=== PATIENT | female | born 1975 | race Caucasian/White ===

== ENCOUNTER 2016-10-27 21:18 | Observation (INO) ==
[2016-10-27] MEDS ORDERED: Ondansetron 4 MG/2 ML VIAL IVP ONE (21:54)
[2016-10-27] MEDS ORDERED: *HR* HYDROmorphone (PF) 1 MG/ML SYRINGE IVP ONE (21:54)
[2016-10-27] MEDS ORDERED: 0.9 % Sodium Chloride 1,000 ML IVC ONE (21:54)
--- NOTE | 2016-10-27 21:55 | Emergency Department Note ---
Disposition Clinical Impression: Abdominal pain Qualifiers: Abdominal location: unspecified location Qualified Code(s): R10.9 - Unspecified abdominal pain Disposition: Still a Patient Condition: Good Forms: Work/School Release, ED Satisfaction Letter Abdominal Pain HPI - General Chief Complaint: ED Abdominal Pain Stated Complaint: possible uti, abdominal/back pain Time Seen by Provider: 10/27/16 21:47 Source: patient Mode of arrival: ambulatory Limitations: no limitations Nursing Notes Reviewed: Yes Vital Signs Reviewed: Yes - History of Present Illness HPI Narrative: 41-year-old female who comes in complaining of right flank and right upper quadrant pain. Patient states the pain has been going on for the last couple of days. Has had some mild burning on urination. Pt Subjective Complaint: abdominal pain, flank pain Onset (ago): day(s) Consistency: constant Location: RUQ, R flank Pain Severity: moderate Pain Scale: 8 Quality: stabbing, aching Migration to: no migration Improves with: nothing Worsens with: nothing Associated symptoms: Reports: nausea - Related Data Allergies Allergy/AdvReac Type Severity Reaction Status Date / Time No Known Allergies Allergy Verified 10/27/16 21:45 Constitutional: Denies: fever, chills, weakness, weight change Eyes: Denies: eye pain, eye discharge, vision change ENT ED: Denies: ear pain, throat pain, dental pain, hearing loss, epistaxis, congestion, dysphagia Cardiovascular: Denies: chest pain, palpitations, dyspnea on exertion, edema, syncope Respiratory: Denies: cough, dyspnea, wheezes, hemoptysis, stridor Gastrointestinal: Reports: abdominal pain, nausea. Denies: vomiting, diarrhea, constipation, hematemesis, melena, hematochezia Genitourinary: Denies: dysuria, frequency, hematuria, discharge Musculoskeletal: Denies: back pain, neck pain, arthralgia, myalgia Integumentary: Denies: rash, abrasion, lesions Neurological: Denies: headache, weakness, numbness, paresthesias, confusion, abnormal gait, vertigo Psychiatric: Denies: anxiety, depression, suicidal thoughts, homicidal thoughts , auditory hallucinations, visual hallucinations Endocrine: Denies: fatigue Hematological/Lymphatic: Denies: easy bleeding, easy bruising Allergic/Immunologic: Denies: facial swelling, urticaria Abdominal Pain PMH - Past Medical History Medical history: Reports: no medical history Female Surgical History: Reports: other Psychiatric history: Reports: no psych history - Social History Smoking status: Never smoker Alcohol use: Reports: none Drug use: Reports: none Physical Exam - General Limitations: no limitations General appearance: alert, in no apparent distress - Head Head exam: atraumatic, normocephalic, normal inspection - Eye Eye exam: Present: normal appearance, PERRL, EOMI - ENT ENT exam: normal exam, normal oropharynx, mucous membranes moist - Neck Neck exam: Present: normal inspection, full ROM, trachea midline - Chest Chest inspection: Present: normal inspection, symmetric chest wall rise - Respiratory Respiratory exam: Present: normal lung sounds bilaterally - Cardiovascular Cardiovascular exam: Present: regular rate, normal rhythm, normal heart sounds - Abdominal Exam Abdominal exam: Present: soft, tenderness. Absent: guarding, rebound Abdominal tenderness: Present: RUQ - Extremities Exam Extremities exam: Present: normal inspection, full ROM. Absent: tenderness, pedal edema - Expanded Lower Extremity Exam Neurovascular/Tendon exam: Absent: motor deficit, sensory deficit, tendon deficit Gait: observed and normal - Back Exam Back exam: Present: normal inspection, full ROM. Absent: tenderness - Neurological Exam Neurological exam: Present: alert, oriented X3 - Psychiatric Psychiatric exam: Present: normal affect, normal mood - Skin Skin exam: Present: warm, dry, intact, normal color Course Vital Signs Temperature 98.6 F 10/27/16 21:40 Pulse Rate 95 10/27/16 21:40 Respiratory Rate 20 10/27/16 21:40 Blood Pressure 161/99 10/27/16 21:40 O2 Sat by Pulse Oximetry 97 10/27/16 21:40 Temperature 98.6 F 10/27/16 21:40 Pulse Rate 95 10/27/16 21:40 Respiratory Rate 20 10/27/16 21:40 Blood Pressure 161/99 10/27/16 21:40 O2 Sat by Pulse Oximetry 97 10/27/16 21:40 Oxygen Delivery Oxygen Delivery Room Air Abdominal Pain - Lab Data Result diagrams: 10/27/16 22:05 10/27/16 22:05 Lab Results 10/27/16 10/27/16 10/27/16 Range/Units 21:50 21:50 22:05 WBC 8.8 (4.3-11.1) K/mcL RBC 5.25 H (3.82-4.97) M/mcL Hgb 13.6 (11.5-15.4) g/dL Hct 42.1 (35.3-44.9) % MCV 80.2 L (83.0-100.0) fL MCH 25.9 L (28.0-33.3) pg MCHC 32.3 (31.6-35.5) g/dL RDW 14.2 (11.5-14.5) % Plt Count 298 (140-400) K/mcL MPV 9.0 L (9.4-12.4) fL Immature Gran % 0.5 (0-4) % Seg Neutrophils % 68.6 % Lymphocytes % 17.7 % Monocytes % 10.3 % Eosinophils % 2.4 % Basophils % 0.5 % Neutrophils # 6.1 (1.6-8.9) K/mcL Lymphocytes # 1.6 (0.6-4.6) K/mcL Monocytes # 0.9 (0.0-1.3) K/mcL Eosinophils # 0.2 (0.0-0.6) K/mcL Basophils # 0.0 (0.0-0.2) K/mcL Immature Plt Fraction 2.7 (1.1-6.1) % Sodium (136-145) mEq/L Potassium (3.5-4.5) mEq/L Chloride (98-109) mEq/L Carbon Dioxide (19-29) mEq/L BUN (7-20) mg/dL Creatinine (0.57-1.11) mg/dL Est GFR ( Amer) (> 60) Est GFR (Non-Af Amer) (> 60) BUN/Creatinine Ratio (6-26) Glucose (70-99) mg/dL Calculated Osmolality (280-300) Calcium (8.6-10.8) mg/dL Total Bilirubin (0.2-1.2) mg/dL Direct Bilirubin (0.0-0.5) mg/dL Indirect Bilirubin (0.0-1.2) mg/dL AST (5-34) Units/L ALT (0-55) Units/L Alkaline Phosphatase (38-126) Units/L Serum Total Protein (6.0-8.3) g/dL Albumin (3.5-5.0) g/dL Globulin (2.4-3.5) g/dL Albumin/Globulin Ratio (1.1-2.2) Amylase (25-125) Units/L Lipase (8-78) Units/L Urine Color Yellow (Yellow) Urine Clarity Cloudy A (Clear) Urine pH 5.5 (5.0-8.0) pH Units Ur Specific [place] > 1.030 H (1.010-1.025) Urine Protein Trace (Neg-Trace) mg/dL Urine Glucose (UA) Normal (Normal) mg/dL Urine Ketones Negative (Negative) mg/dL Urine Blood Small H (Negative) Urine Nitrite Negative (Negative) Urine Bilirubin Negative (Negative) Urine Urobilinogen Normal (Normal) mg/dL Ur Leukocyte Esterase Trace H (Negative) Urine Microscopic RBC 30-50 H (0-3) per hpf Urine Microscopic WBC 5-15 H (0-3) per hpf Ur Squamous Epith Cells Many H (None-Few) per lpf Urine Bacteria Moderate H (None-Few) per hpf Hyaline Casts None Seen (None-Few) per lpf Ur Culture Indicated? YES A (NO) Urine Test Negative (Negative) 10/27/16 10/27/16 Range/Units 22:05 22:05 WBC (4.3-11.1) K/mcL RBC (3.82-4.97) M/mcL Hgb (11.5-15.4) g/dL Hct (35.3-44.9) % MCV (83.0-100.0) fL MCH (28.0-33.3) pg MCHC (31.6-35.5) g/dL RDW (11.5-14.5) % Plt Count (140-400) K/mcL MPV (9.4-12.4) fL Immature Gran % (0-4) % Seg Neutrophils % % Lymphocytes % % Monocytes % % Eosinophils % % Basophils % % Neutrophils # (1.6-8.9) K/mcL Lymphocytes # (0.6-4.6) K/mcL Monocytes # (0.0-1.3) K/mcL Eosinophils # (0.0-0.6) K/mcL Basophils # (0.0-0.2) K/mcL Immature Plt Fraction (1.1-6.1) % Sodium 139 (136-145) mEq/L Potassium 4.0 (3.5-4.5) mEq/L Chloride 104 (98-109) mEq/L Carbon Dioxide 22 (19-29) mEq/L BUN 13 (7-20) mg/dL Creatinine 0.83 (0.57-1.11) mg/dL Est GFR ( Amer) > 60 (> 60) Est GFR (Non-Af Amer) > 60 (> 60) BUN/Creatinine Ratio 16 (6-26) Glucose 111 H (70-99) mg/dL Calculated Osmolality 289 (280-300) Calcium 9.3 (8.6-10.8) mg/dL Total Bilirubin 0.4 (0.2-1.2) mg/dL Direct Bilirubin 0.2 (0.0-0.5) mg/dL Indirect Bilirubin 0.2 (0.0-1.2) mg/dL AST 21 (5-34) Units/L ALT 24 (0-55) Units/L Alkaline Phosphatase 86 (38-126) Units/L Serum Total Protein 8.1 (6.0-8.3) g/dL Albumin 3.8 (3.5-5.0) g/dL Globulin 4.3 H (2.4-3.5) g/dL Albumin/Globulin Ratio 0.9 L (1.1-2.2) Amylase 59 (25-125) Units/L Lipase 30 (8-78) Units/L Urine Color (Yellow) Urine Clarity (Clear) Urine pH (5.0-8.0) pH Units Ur Specific [place] (1.010-1.025) Urine Protein (Neg-Trace) mg/dL Urine Glucose (UA) (Normal) mg/dL Urine Ketones (Negative) mg/dL Urine Blood (Negative) Urine Nitrite (Negative) Urine Bilirubin (Negative) Urine Urobilinogen (Normal) mg/dL Ur Leukocyte Esterase (Negative) Urine Microscopic RBC (0-3) per hpf Urine Microscopic WBC (0-3) per hpf Ur Squamous Epith Cells (None-Few) per lpf Urine Bacteria (None-Few) per hpf Hyaline Casts (None-Few) per lpf Ur Culture Indicated? (NO) Urine Test (Negative) S.B.A.R. - S.B.A.R. Recommendation: Recommendation based on pending studies, treatments, or consults S.B.A.R. Report Given to: Dr. Jairo Caruso Repor Time: 23:00
[2016-10-27 22:00] LABS: Bilirubin,Urine Negative (Negative); Blood,Urine Small (Negative); Clarity,Urine Cloudy (Clear); Color,Urine Yellow (Yellow); Glucose,Urine (UA) Normal (Normal); Ketones,Urine Negative (Negative); Leukocyte Esterase,Urine Trace (Negative); Nitrite,Urine Negative (Negative); PH,Urine 5.5 pH Units (5.0-8.0); Protein,Urine Trace mg/dL (Neg-Trace); Specific Gravity,Urine > 1.030 (1.010-1.025); Urobilinogen,Urine Normal (Normal)
[2016-10-27 22:03] LABS: Bacteria,Urine Moderate per hpf (None-Few); Hyaline Casts,Urine None Seen per lpf (None-Few); RBC,Urine 30-50 per hpf (0-3); Squamous Epithelial Cell,Urine Many per lpf (None-Few)
[2016-10-27 22:14] LABS: Basophils % 0.5 %; Eosinophils # 0.2 K/mcL (0.0-0.6); Eosinophils % 2.4 %; Hematocrit 42.1 % (35.3-44.9); Hemoglobin 13.6 g/dL (11.5-15.4); Immature Granulocytes % 0.5 % (0-4); Immature Platelets 2.7 % (1.1-6.1); Lymphocytes # 1.6 K/mcL (0.6-4.6); Lymphocytes % 17.7 %; Mean Corpuscular HGB Conc 32.3 g/dL (31.6-35.5); Mean Corpuscular Hemoglobin 25.9 pg (28.0-33.3); Mean Corpuscular Volume 80.2 fL (83.0-100.0); Monocytes # 0.9 K/mcL (0.0-1.3); Monocytes % 10.3 %; Neutrophils # 6.1 K/mcL (1.6-8.9); Platelet Count 298 K/mcL (140-400); Red Blood Count 5.25 M/mcL (3.82-4.97); Red Cell Distribution Width 14.2 % (11.5-14.5); Segmented Neutrophils % 68.6 %
[2016-10-27 22:31] LABS: BUN/Creatinine Ratio 16 (6-26); Blood Urea Nitrogen 13 mg/dL (7-20); Calcium 9.3 mg/dL (8.6-10.8); Carbon Dioxide 22 mEq/L (19-29); Chloride 104 mEq/L (98-109); Glucose 111 mg/dL (70-99); Osmolality,Calculated 289 (280-300); Sodium 139 mEq/L (136-145); eGFR For African Americans > 60 (> 60); eGFR For Non-African Americans > 60 (> 60)
[2016-10-27 22:33] LABS: Albumin 3.8 g/dL (3.5-5.0); Albumin/Globulin Ratio 0.9 (1.1-2.2); Bilirubin,Direct 0.2 mg/dL (0.0-0.5); Bilirubin,Indirect 0.2 mg/dL (0.0-1.2); Bilirubin,Total 0.4 mg/dL (0.2-1.2); Globulin 4.3 g/dL (2.4-3.5); Total Protein 8.1 g/dL (6.0-8.3)
--- NOTE | 2016-10-27 23:14 | Emergency Department Note ---
Disposition Clinical Impression: Atrial fibrillation with RVR Abdominal pain Qualifiers: Abdominal location: unspecified location Qualified Code(s): R10.9 - Unspecified abdominal pain UTI (urinary tract infection) Qualifiers: Urinary tract infection type: site unspecified Hematuria presence: with hematuria Qualified Code(s): N39.0 - Urinary tract infection, site not specified Disposition: Admitted As Inpatient Condition: Good Time of Disposition: 03:51 Abdominal Pain HPI - General Chief Complaint: ED Abdominal Pain Stated Complaint: possible uti, abdominal/back pain Time Seen by Provider: 10/27/16 21:47 Source: patient Mode of arrival: ambulatory Nursing Notes Reviewed: Yes Vital Signs Reviewed: Yes - History of Present Illness Pt Subjective Complaint: abdominal pain, flank pain Location: RUQ, R flank Pain Severity: moderate Pain Scale: 8 Quality: stabbing, aching Migration to: no migration Improves with: nothing Worsens with: nothing Associated symptoms: Reports: nausea - Related Data Previous Rx's Medication Instructions Recorded Cephalexin [Keflex] 500 mg PO BID 5 Days 10/28/16 Allergies Allergy/AdvReac Type Severity Reaction Status Date / Time No Known Allergies Allergy Verified 10/27/16 21:45 Constitutional: Denies: fever, chills, weakness, weight change Eyes: Denies: eye pain, eye discharge, vision change ENT ED: Denies: ear pain, throat pain, dental pain, hearing loss, epistaxis, congestion, dysphagia Cardiovascular: Denies: chest pain, palpitations, dyspnea on exertion, edema, syncope Respiratory: Denies: cough, dyspnea, wheezes, hemoptysis, stridor Gastrointestinal: Reports: abdominal pain, nausea. Denies: vomiting, diarrhea, constipation, hematemesis, melena, hematochezia Genitourinary: Denies: dysuria, frequency, hematuria, discharge Musculoskeletal: Denies: back pain, neck pain, arthralgia, myalgia Integumentary: Denies: rash, abrasion, lesions Neurological: Denies: headache, weakness, numbness, paresthesias, confusion, abnormal gait, vertigo Psychiatric: Denies: anxiety, depression, suicidal thoughts, homicidal thoughts , auditory hallucinations, visual hallucinations Endocrine: Denies: fatigue Hematological/Lymphatic: Denies: easy bleeding, easy bruising Allergic/Immunologic: Denies: facial swelling, urticaria Abdominal Pain PMH - Past Medical History Medical history: Reports: no medical history Female Surgical History: Reports: other Psychiatric history: Reports: no psych history - Social History Smoking status: Never smoker Alcohol use: Reports: none Drug use: Reports: none Physical Exam - General Limitations: no limitations General appearance: alert, in no apparent distress Course - Reevaluation(s) Reevaluation #1: Due to shift change, care of this patient was transferred to mo from dayshift of either Dr. Ward. Please see his earlier documentation for additional details. Patient was discussed with Dr. Ward, time of care transfer, patient was awaiting right upper quadrant ultrasound due to patient's RUQ pain. Urinalysis also reviewed and discussed with Dr. Ward, evidence for urinary tract infection. If that upper quadrant within normal limits, patient discharged home, and we will consider treatment for urinary tract infection. Time: 23:14 Reevaluation #2: After my discharge instructions, but prior to patient being discharged nurse, was notified by nursing the patient was tachycardic. Patient is afebrile, has not been tachycardic during her course here today. On Monitor patient currently 154 bpm. Heart rate irregular. Patient denies any chest pain, shortness of breath, nausea, lightheadedness. Denies any history of anxiety, or any cardiac issues. Patient had mentioned that she is taking a over-the- counter thyroid replacement personal supplement for weight loss, and also recently discontinued phentermine approx two weeks ago after taking it for about 8 weeks. EKG ordered. Time: 01:00 Reevaluation #3: Cardizem ordered. Patient denies any previous A. fib history, hypertension. She has been attempting to lose weight. Patient has been prescribed phentermine from a doctor in [place]. She also describes a weight loss supplement given to her by a friend. Patient states that her friend had told her it was to boost her thyroid to weight loss, referred to and has T3. Patient stated it was liquid, and other than the name T3 there is no other labels or dosage instructions on the plain brown bottle. Time: 01:20 Additional Reevaluation(s): Patient was discussed with and accepted by hospitalist Dr. Carbajal who also requested IV fluids. Vital Signs Temperature 98.6 F 10/27/16 21:40 Pulse Rate 95 10/27/16 21:40 Respiratory Rate 20 10/27/16 21:40 Blood Pressure 161/99 10/27/16 21:40 O2 Sat by Pulse Oximetry 97 10/27/16 21:40 Temperature 98.6 F 10/28/16 04:15 Pulse Rate 96 10/28/16 04:15 Respiratory Rate 18 10/28/16 04:15 Blood Pressure 145/85 10/28/16 04:15 O2 Sat by Pulse Oximetry 98 10/28/16 04:15 Oxygen Delivery Oxygen Delivery Room Air Abdominal Pain - MDM Narrative Medical decision making narrative: Patient presented initially with some right upper quadrant pain and dysuria. Workup from dayshift showed Gallbladder ultrasound not concerning for cholecystitis. Patient appeared comfortable on reexamination, vitals within normal limits and evenutally or abdominal pain had improved here. Urinalysis does show evidence of urinary tract infection. Patient has had some dysuria, and flank pain as well. Patient states she does not have a primary care provider. I discussed reevaluation at PCP for her symptoms, UTI, and results of ultrasound. She was in agreement. Upon discharge vitals, patient was found to be tachycardic, with a subsequent EKG showing A. fib with RVR. No previous history, however, pt has been taking an unknown weight loss supplement. Patient had received 2 boluses of Cardizem, as well as the dose of Lopressor. Discussed patient with Dr. Gill, who had face time with patient as well, and agreed for admission. Patient was discussed with and accepted by hospitalist. All Lab Results (24 Hours) 10/27/16 10/27/16 10/27/16 Range/Units 21:50 21:50 22:05 WBC 8.8 (4.3-11.1) K/mcL RBC 5.25 H (3.82-4.97) M/mcL Hgb 13.6 (11.5-15.4) g/dL Hct 42.1 (35.3-44.9) % MCV 80.2 L (83.0-100.0) fL MCH 25.9 L (28.0-33.3) pg MCHC 32.3 (31.6-35.5) g/dL RDW 14.2 (11.5-14.5) % Plt Count 298 (140-400) K/mcL MPV 9.0 L (9.4-12.4) fL Immature Gran % 0.5 (0-4) % Seg Neutrophils % 68.6 % Lymphocytes % 17.7 % Monocytes % 10.3 % Eosinophils % 2.4 % Basophils % 0.5 % Neutrophils # 6.1 (1.6-8.9) K/mcL Lymphocytes # 1.6 (0.6-4.6) K/mcL Monocytes # 0.9 (0.0-1.3) K/mcL Eosinophils # 0.2 (0.0-0.6) K/mcL Basophils # 0.0 (0.0-0.2) K/mcL Immature Plt Fraction 2.7 (1.1-6.1) % Sodium (136-145) mEq/L Potassium (3.5-4.5) mEq/L Chloride (98-109) mEq/L Carbon Dioxide (19-29) mEq/L BUN (7-20) mg/dL Creatinine (0.57-1.11) mg/dL Est GFR ( Amer) (> 60) Est GFR (Non-Af Amer) (> 60) BUN/Creatinine Ratio (6-26) Glucose (70-99) mg/dL Calculated Osmolality (280-300) Calcium (8.6-10.8) mg/dL Total Bilirubin (0.2-1.2) mg/dL Direct Bilirubin (0.0-0.5) mg/dL Indirect Bilirubin (0.0-1.2) mg/dL AST (5-34) Units/L ALT (0-55) Units/L Alkaline Phosphatase (38-126) Units/L Serum Total Protein (6.0-8.3) g/dL Albumin (3.5-5.0) g/dL Globulin (2.4-3.5) g/dL Albumin/Globulin Ratio (1.1-2.2) Amylase (25-125) Units/L Lipase (8-78) Units/L Urine Color Yellow (Yellow) Urine Clarity Cloudy A (Clear) Urine pH 5.5 (5.0-8.0) pH Units Ur Specific [place] > 1.030 H (1.010-1.025) Urine Protein Trace (Neg-Trace) mg/dL Urine Glucose (UA) Normal (Normal) mg/dL Urine Ketones Negative (Negative) mg/dL Urine Blood Small H (Negative) Urine Nitrite Negative (Negative) Urine Bilirubin Negative (Negative) Urine Urobilinogen Normal (Normal) mg/dL Ur Leukocyte Esterase Trace H (Negative) Urine Microscopic RBC 30-50 H (0-3) per hpf Urine Microscopic WBC 5-15 H (0-3) per hpf Ur Squamous Epith Cells Many H (None-Few) per lpf Urine Bacteria Moderate H (None-Few) per hpf Hyaline Casts None Seen (None-Few) per lpf Ur Culture Indicated? YES A (NO) Urine Test Negative (Negative) 10/27/16 10/27/16 Range/Units 22:05 22:05 WBC (4.3-11.1) K/mcL RBC (3.82-4.97) M/mcL Hgb (11.5-15.4) g/dL Hct (35.3-44.9) % MCV (83.0-100.0) fL MCH (28.0-33.3) pg MCHC (31.6-35.5) g/dL RDW (11.5-14.5) % Plt Count (140-400) K/mcL MPV (9.4-12.4) fL Immature Gran % (0-4) % Seg Neutrophils % % Lymphocytes % % Monocytes % % Eosinophils % % Basophils % % Neutrophils # (1.6-8.9) K/mcL Lymphocytes # (0.6-4.6) K/mcL Monocytes # (0.0-1.3) K/mcL Eosinophils # (0.0-0.6) K/mcL Basophils # (0.0-0.2) K/mcL Immature Plt Fraction (1.1-6.1) % Sodium 139 (136-145) mEq/L Potassium 4.0 (3.5-4.5) mEq/L Chloride 104 (98-109) mEq/L Carbon Dioxide 22 (19-29) mEq/L BUN 13 (7-20) mg/dL Creatinine 0.83 (0.57-1.11) mg/dL Est GFR ( Amer) > 60 (> 60) Est GFR (Non-Af Amer) > 60 (> 60) BUN/Creatinine Ratio 16 (6-26) Glucose 111 H (70-99) mg/dL Calculated Osmolality 289 (280-300) Calcium 9.3 (8.6-10.8) mg/dL Total Bilirubin 0.4 (0.2-1.2) mg/dL Direct Bilirubin 0.2 (0.0-0.5) mg/dL Indirect Bilirubin 0.2 (0.0-1.2) mg/dL AST 21 (5-34) Units/L ALT 24 (0-55) Units/L Alkaline Phosphatase 86 (38-126) Units/L Serum Total Protein 8.1 (6.0-8.3) g/dL Albumin 3.8 (3.5-5.0) g/dL Globulin 4.3 H (2.4-3.5) g/dL Albumin/Globulin Ratio 0.9 L (1.1-2.2) Amylase 59 (25-125) Units/L Lipase 30 (8-78) Units/L Urine Color (Yellow) Urine Clarity (Clear) Urine pH (5.0-8.0) pH Units Ur Specific [place] (1.010-1.025) Urine Protein (Neg-Trace) mg/dL Urine Glucose (UA) (Normal) mg/dL Urine Ketones (Negative) mg/dL Urine Blood (Negative) Urine Nitrite (Negative) Urine Bilirubin (Negative) Urine Urobilinogen (Normal) mg/dL Ur Leukocyte Esterase (Negative) Urine Microscopic RBC (0-3) per hpf Urine Microscopic WBC (0-3) per hpf Ur Squamous Epith Cells (None-Few) per lpf Urine Bacteria (None-Few) per hpf Hyaline Casts (None-Few) per lpf Ur Culture Indicated? (NO) Urine Test (Negative) Gallbladder Ultrasound 10/27/16 21:52 IMPRESSION: No evidence of cholelithiasis. Mild coarse increased echogenicity of liver parenchyma, likely fatty infiltration. D/ / Luis Fernando Pérez MD / Luis Fernando Pérez MD Interpreting Provider: Luis Fernando Pérez MD - Medical Records Medical records reviewed: Yes I reviewed the patient's medical records. - Lab Data Lab results reviewed: Yes I reviewed the patient's lab results. Result diagrams: 10/27/16 22:05 10/27/16 22:05 Lab Results 10/27/16 10/27/1610/27/17 Range/Units 21:50 21:50 22:05 WBC 8.8 (4.3-11.1) K/mcL RBC 5.25 H (3.82-4.97) M/mcL Hgb 13.6 (11.5-15.4) g/dL Hct 42.1 (35.3-44.9) % MCV 80.2 L (83.0-100.0) fL MCH 25.9 L (28.0-33.3) pg MCHC 32.3 (31.6-35.5) g/dL RDW 14.2 (11.5-14.5) % Plt Count 298 (140-400) K/mcL MPV 9.0 L (9.4-12.4) fL Immature Gran % 0.5 (0-4) % Seg Neutrophils % 68.6 % Lymphocytes % 17.7 % Monocytes % 10.3 % Eosinophils % 2.4 % Basophils % 0.5 % Neutrophils # 6.1 (1.6-8.9) K/mcL Lymphocytes # 1.6 (0.6-4.6) K/mcL Monocytes # 0.9 (0.0-1.3) K/mcL Eosinophils # 0.2 (0.0-0.6) K/mcL Basophils # 0.0 (0.0-0.2) K/mcL Immature Plt Fraction 2.7 (1.1-6.1) % Sodium (136-145) mEq/L Potassium (3.5-4.5) mEq/L Chloride (98-109) mEq/L Carbon Dioxide (19-29) mEq/L BUN (7-20) mg/dL Creatinine (0.57-1.11) mg/dL Est GFR ( Amer) (> 60) Est GFR (Non-Af Amer) (> 60) BUN/Creatinine Ratio (6-26) Glucose (70-99) mg/dL Calculated Osmolality (280-300) Calcium (8.6-10.8) mg/dL Total Bilirubin (0.2-1.2) mg/dL Direct Bilirubin (0.0-0.5) mg/dL Indirect Bilirubin (0.0-1.2) mg/dL AST (5-34) Units/L ALT (0-55) Units/L Alkaline Phosphatase (38-126) Units/L Troponin I (0-0.03) ng/mL Serum Total Protein (6.0-8.3) g/dL Albumin (3.5-5.0) g/dL Globulin (2.4-3.5) g/dL Albumin/Globulin Ratio (1.1-2.2) Amylase (25-125) Units/L Lipase (8-78) Units/L TSH (0.350-4.840) mcIU/mL Free T4 (0.70-1.48) ng/dl Free T3 (1.71-3.71) pg/mL Total T3 (0.58-1.59) ng/mL Urine Color Yellow (Yellow) Urine Clarity Cloudy A (Clear) Urine pH 5.5 (5.0-8.0) pH Units Ur Specific [place] > 1.030 H (1.010-1.025) Urine Protein Trace (Neg-Trace) mg/dL Urine Glucose (UA) Normal (Normal) mg/dL Urine Ketones Negative (Negative) mg/dL Urine Blood Small H (Negative) Urine Nitrite Negative (Negative) Urine Bilirubin Negative (Negative) Urine Urobilinogen Normal (Normal) mg/dL Ur Leukocyte Esterase Trace H (Negative) Urine Microscopic RBC 30-50 H (0-3) per hpf Urine Microscopic WBC 5-15 H (0-3) per hpf Ur Squamous Epith Cells Many H (None-Few) per lpf Urine Bacteria Moderate H (None-Few) per hpf Hyaline Casts None Seen (None-Few) per lpf Ur Culture Indicated? YES A (NO) Urine Test Negative (Negative) 10/27/16 10/27/16 10/27/16 Range/Units 22:05 22:05 22:05 WBC (4.3-11.1) K/mcL RBC (3.82-4.97) M/mcL Hgb (11.5-15.4) g/dL Hct (35.3-44.9) % MCV (83.0-100.0) fL MCH (28.0-33.3) pg MCHC (31.6-35.5) g/dL RDW (11.5-14.5) % Plt Count (140-400) K/mcL MPV (9.4-12.4) fL Immature Gran % (0-4) % Seg Neutrophils % % Lymphocytes % % Monocytes % % Eosinophils % % Basophils % % Neutrophils # (1.6-8.9) K/mcL Lymphocytes # (0.6-4.6) K/mcL Monocytes # (0.0-1.3) K/mcL Eosinophils # (0.0-0.6) K/mcL Basophils # (0.0-0.2) K/mcL Immature Plt Fraction (1.1-6.1) % Sodium 139 (136-145) mEq/L Potassium 4.0 (3.5-4.5) mEq/L Chloride 104 (98-109) mEq/L Carbon Dioxide 22 (19-29) mEq/L BUN 13 (7-20) mg/dL Creatinine 0.83 (0.57-1.11) mg/dL Est GFR ( Amer) > 60 (> 60) Est GFR (Non-Af Amer) > 60 (> 60) BUN/Creatinine Ratio 16 (6-26) Glucose 111 H (70-99) mg/dL Calculated Osmolality 289 (280-300) Calcium 9.3 (8.6-10.8) mg/dL Total Bilirubin 0.4 (0.2-1.2) mg/dL Direct Bilirubin 0.2 (0.0-0.5) mg/dL Indirect Bilirubin 0.2 (0.0-1.2) mg/dL AST 21 (5-34) Units/L ALT 24 (0-55) Units/L Alkaline Phosphatase 86 (38-126) Units/L Troponin I 0.00 (0-0.03) ng/mL Serum Total Protein 8.1 (6.0-8.3) g/dL Albumin 3.8 (3.5-5.0) g/dL Globulin 4.3 H (2.4-3.5) g/dL Albumin/Globulin Ratio 0.9 L (1.1-2.2) Amylase 59 (25-125) Units/L Lipase 30 (8-78) Units/L TSH 0.031 L (0.350-4.840) mcIU/mL Free T4 0.73 (0.70-1.48) ng/dl Free T3 4.27 H (1.71-3.71) pg/mL Total T3 1.75 H (0.58-1.59) ng/mL Urine Color (Yellow) Urine Clarity (Clear) Urine pH (5.0-8.0) pH Units Ur Specific [place] (1.010-1.025) Urine Protein (Neg-Trace) mg/dL Urine Glucose (UA) (Normal) mg/dL Urine Ketones (Negative) mg/dL Urine Blood (Negative) Urine Nitrite (Negative) Urine Bilirubin (Negative) Urine Urobilinogen (Normal) mg/dL Ur Leukocyte Esterase (Negative) Urine Microscopic RBC (0-3) per hpf Urine Microscopic WBC (0-3) per hpf Ur Squamous Epith Cells (None-Few) per lpf Urine Bacteria (None-Few) per hpf Hyaline Casts (None-Few) per lpf Ur Culture Indicated? (NO) Urine Test (Negative) - Radiology Data Radiology results reviewed: Yes I reviewed the patient's radiology results. Critical Care Time Critical Care Time: Yes Total Critical Care Time: 35 Attestation: New onset atrial fibrillation with RVR Attestation Statement - Attestation Attestation: Dr Gill note: Pt re evaluated; was here for abd pain, but developed palpitations and an EKG was performed and the patient patient was found to be in atrial fibrillation. A couple days ago she tried taking an [id number] thyroid supplement called T3. No prior history of arrhythmia. Likely this is causative factor. She does not have chest pain or shortness of breath. Her atrial fibrillation was refractory to IV Cardizem 2. She will be given additional medications and will be rate controlled prior to admission which is indicated due to new-onset fibrillation; HR improved prior to admission and blood pressure is stable
[2016-10-28 01:47] LABS: Thyroid Stimulating Hormone 0.031 mcIU/mL (0.350-4.840)
[2016-10-28] MEDS ORDERED: *HR* Metoprolol 5 MG/5 ML VIAL IVP ONE (03:15)
[2016-10-28 03:27] LABS: Triiodothyronine (T3) Free 4.27 pg/mL (1.71-3.71); Triiodothyronine (T3) Total 1.75 ng/mL (0.58-1.59)
[2016-10-28] MEDS ORDERED: 0.9 % Sodium Chloride 1,000 ML IVC ONE (03:39)
[2016-10-28] MEDS ORDERED: Ondansetron 4 MG/2 ML VIAL IVP PRN (05:49)
[2016-10-28] MEDS ORDERED: Acetaminophen 325 MG TABLET PO PRN (05:49)
[2016-10-28] MEDS ORDERED: Ketorolac 30 MG/ML VIAL IVP PRN (05:49)
--- NOTE | 2016-10-28 06:34 | Internal Med History&Physical ---
<Teddy Sawant - Last Filed: 10/28/16 06:51> Date of Encounter: 10/28/16 Time of Encounter: 05:30 Assessment and Plan (1) Atrial fibrillation with RVR Current visit: Yes Status: Acute - Patient was in A-fib RVR with HR 150s in ED. - Likely secondary to hyperthyroidism from OTC T3 use. - Currently sinus rhythm at rate of 90s. - [id number] score = 1 (female gender). - Start aspirin 325 mg PO daily for anticoagulation. - Start Lopressor 12.5 mg PO BID for rate control. - Continue to monitor with telemetry. (2) Hyperthyroidism Current visit: Yes Status: Acute - TSH 0.031, Free T4 0.73, Free T3 4.27, Total T3 1.75. - Secondary to patient's use of OTC T3. - Patient is instructed to discontinue that T3. - Continue to monitor. (3) UTI (urinary tract infection) Current visit: Yes Status: Acute - UA suggests UTI. - Possible pyelonephritis given positive right CVA tenderness. - Pending urine culture. - Start ceftriaxone IV. Will de-escalate based on clinical findings and culture results. Qualifiers: Urinary tract infection type: acute pyelonephritis Qualified Code(s): N10 - Acute pyelonephritis (4) Abdominal pain Current visit: Yes Status: Acute - Bilateral lower quadrant abdominal pain with right flank pain. - Likely secondary to UTI. - RUQ US is unremarkable. - Pain control with Tylenol prn. Qualifiers: Abdominal location: lower abdomen, unspecified Qualified Code(s): R10.30 - Lower abdominal pain, unspecified Internal Medicine - H&P: HPI Chief complaint: Abdominal pain and dysuria Admitted From: Emergency Dept Plans for Post Hospital Care: Home History of present illness: Ms. Gill is a 41 year old female without known PMH (patient reports not seeing doctor for years). Patient presented to [place] for abdominal pain and dysuria. Patient reports having right back pain starting 2 weeks ago, then bilateral lower abdominal pain starting 2 days ago and dysuria starting one day ago. Patient denies fever, chills, nausea, vomiting, diarrhea, chest pain, dyspnea, skin rash/itchiness. Patient denies known history of kidney stone. Patient denies known history of cardiac problem. In ED, patient got RUQ US which is unremarkable. Right before patient was discharged from ED, patient was noted to have irregular tachycardia at 150s. Patient reports feeling palpitation but denies chest pain, diaphoresis, lightheadedness, syncope. Per ED physician, the EKG in ED showed A-fib. Patient received one dose of Lopressor and two doses of Cardizem. Patient was eventually put on Cardizem bolus. Further inquiring revealed that patient was taking prescribed phentermine from a doctor in [place] since end of August. Patient reports losing 7 lb from that but discontinued phentermine 2 weeks. She also started to take T3 solution since Monday (10/24) which was provided by her friend. Patient is admitted for further evaluation and management. Patient is full code. Past Med Surg Social Fam HX - Past Medical History Medical history: no medical history Psychiatric history: no psych history - Past Surgical History Surgical History: other (Tubal ligation.) - Social History Smoking Status: Never smoker Smokeless Tobacco Status: No Alcohol use: none Drug use: none - Family History Mother Living Status: Still Living Internal Medicine - H&P: Meds Cephalexin [Keflex] 500 mg PO BID 5 Days 10/28/16 [Rx] Allergies No Known Allergies Allergy (Verified 10/27/16 21:45) All Systems PM: A 10-system review of systems was performed and is negative for pertinent findings except as documented above in the HPI. - Constitutional Constitutional: weight loss, no anorexia, no chills, no fever(s) - EENT Eyes: no change in vision Ears: no decreased hearing Nose, mouth and throat: no dysphagia, no odynophagia - Cardiovascular Cardiovascular ROS IM: palpitations, no chest pain, no lightheadedness, no syncope - Respiratory Respiratory: no cough, no dyspnea, no hemoptysis - Gastrointestinal Gastrointestinal: as per HPI, abdominal pain, no diarrhea, no hematochezia, no melena, no nausea, no vomiting - Genitourinary Genitourinary: as per HPI, dysuria, no difficulty urinating, no hematuria - Musculoskeletal Musculoskeletal ROS IM: no arthralgias, no myalgias - Integumentary Integumentary IM: no pruritus, no rash - Neurological Neurological ROS: no focal weakness, no numbness, no tingling - Hematologic/Lymphatic Hematologic/Lymphatic: no easy bleeding, no easy bruising - Constitutional Vitals: Temp Pulse Resp BP Pulse Ox 98.6 F 96 18 145/85 98 10/28/16 04:15 10/28/16 04:15 10/28/16 04:15 10/28/16 04:15 10/28/16 04:15 General appearance: Present: cooperative, A&O X 3, no acute distress, answers questions appropriately - Head Head exam: Present: atraumatic, normocephalic - Eye Eye exam: Present: EOMI, PERRL, conjuntiva pink, sclera anicteric - Neck Neck exam general surgery: Present: supple, trachea midline. Absent: lymphadenopathy - Respiratory Respiratory exam: Present: CTAB. Absent: accessory muscle use, rales, rhonchi, wheezes - Cardiovascular Cardiovascular exam: Present: +S1, +S2, tachycardia (Sinus rhythm as seen on bedside monitor.). Absent: diastolic murmur, gallop, rubs, systolic murmur - GI/Abdominal GI/Abdominal exam: Present: normal bowel sounds, soft, tenderness (Bilateral lower quadrants), no peritoneal signs. Absent: distended - Extremities Exam Extremities exam: Present: warm, radial pulses palpable and symetrical. Absent : calf tenderness, cyanotic, pedal edema - Back Exam Back exam: Present: CVA tenderness (R). Absent: CVA tenderness (L) - Neurological Exam Neurological exam: Present: CN II-XII intact, oriented X3, no focal deficits. Absent: pronater drift, facial droop, speech deficit - Skin Skin exam: Present: dry, intact, warm Internal Med - H&P Results - Labs CBC & Chem 7: 10/27/16 22:05 10/27/16 22:05 Labs: Short CBC 10/27/16 Range/Units 22:05 WBC 8.8 (4.3-11.1) K/mcL Hgb 13.6 (11.5-15.4) g/dL Hct 42.1 (35.3-44.9) % Plt Count 298 (140-400) K/mcL Neutrophils # 6.1 (1.6-8.9) K/mcL BMP 10/27/16 Range/Units 22:05 Sodium 139 (136-145) mEq/L Potassium 4.0 (3.5-4.5) mEq/L Chloride 104 (98-109) mEq/L Carbon Dioxide 22 (19-29) mEq/L BUN 13 (7-20) mg/dL Creatinine 0.83 (0.57-1.11) mg/dL Glucose 111 H (70-99) mg/dL Calcium 9.3 (8.6-10.8) mg/dL Cardiac Enzymes 10/27/16 Range/Units 22:05 Troponin I 0.00 (0-0.03) ng/mL Liver Function 10/27/16 Range/Units 22:05 Total Bilirubin 0.4 (0.2-1.2) mg/dL Direct Bilirubin 0.2 (0.0-0.5) mg/dL AST 21 (5-34) Units/L ALT 24 (0-55) Units/L Alkaline Phosphatase 86 (38-126) Units/L Albumin 3.8 (3.5-5.0) g/dL Urine 10/27/16 Range/Units 21:50 Urine Color Yellow (Yellow) Urine Clarity Cloudy A (Clear) Urine pH 5.5 (5.0-8.0) pH Units Ur Specific [place] > 1.030 H (1.010-1.025) Urine Protein Trace (Neg-Trace) mg/dL Urine Glucose (UA) Normal (Normal) mg/dL - Impressions Impressions Gallbladder Ultrasound 10/27/16 21:52 IMPRESSION: No evidence of cholelithiasis. Mild coarse increased echogenicity of liver parenchyma, likely fatty infiltration. D/ / Luis Fernando Pérez MD / Luis Fernando Pérez MD Interpreting Provider: Luis Fernando Pérez MD <Estella Langston - Last Filed: 10/28/16 07:24> Date of Encounter: 10/28/16 Internal Medicine - H&P: HPI History of present illness: Ms. Gill is a 41 year old female All Systems PM: A 10-system review of systems was performed and is negative for pertinent findings except as documented above in the HPI. - Constitutional Vitals: Temp Pulse Resp BP Pulse Ox 98.6 F 80 18 113/63 98 10/28/16 04:15 10/28/16 07:13 10/28/16 07:13 10/28/16 07:13 10/28/16 07:13 Internal Med - H&P Results - Labs CBC & Chem 7: 10/27/16 22:05 10/27/16 22:05 - Attending Attestation Patient seen and examined, agree with assessment and plan of resident physician Camilla Sawant. Patient with atrial fibrillation in setting of T3 use (not monitored by physician, intended for weight loss), and pyelonephritis. Patient has agreed to stop T3. Currently back in NSR. Will start on metoprolol for rate control while thyroid function returns to normal. Will need close follow up with PCP for thyroid function tests.
[2016-10-28] MEDS ORDERED: Aspirin 325 MG TABLET PO SCH (09:00)
[2016-10-28 11:36] VITALS: BP 122/68
[2016-10-28 12:09] LABS: Amphetamine Screen,Urine Negative ng/mL (Cutoff=1000); Barbiturate Screen,Urine Negative ng/mL (Cutoff=200); Benzodiazepines Screen,Urine Negative ng/mL (Cutoff=200); Cannabinoid Screen,Urine Negative ng/mL (Cutoff = 50); Cocaine Screen,Urine Negative ng/mL (Cutoff= 300); Opiate Screen,Urine Negative ng/mL (Cutoff=300); Phencyclidine Screen,Urine Negative ng/mL (Cutoff=25)
--- NOTE | 2016-10-28 14:51 | Discharge Summary ---
Date of Encounter: 10/28/16 Time of Encounter: 14:48 - Discharge Diagnosis (1) UTI (urinary tract infection) Priority: Primary Status: Acute Qualifiers: Urinary tract infection type: site unspecified Hematuria presence: with hematuria Qualified Code(s): N39.0 - Urinary tract infection, site not specified; R31.9 - Hematuria, unspecified (2) Atrial fibrillation with RVR Priority: Primary Status: Resolved (3) Hyperthyroidism Priority: Primary Status: Acute - Discharge Medications Prescriptions: Cefdinir [Omnicef] 300 mg PO BID #12 capsule Metoprolol [Lopressor] 12.5 mg PO BID #30 tablet Phenazopyridine [Pyridium] 100 mg PO TID PRN #10 tablet PRN Reason: BURNING DURING URINATION Home Medications: Cefdinir [Omnicef] 300 mg PO BID #12 capsule 10/28/16 [Rx] Metoprolol [Lopressor] 12.5 mg PO BID #30 tablet 10/28/16 [Rx] Phenazopyridine [Pyridium] 100 mg PO TID PRN #10 tablet 10/28/16 [Rx] Allergies/Adverse Reactions: Allergies No Known Allergies Allergy (Verified 10/27/16 21:45) Procedures/tests Complete & Pending: Procedures Performed prior 72 hours Category Date Time Status CT abd pelvis wo no iv no oral [CT] Routine Cat Scan 10/28/16 10:45 Completed Date of admission: 10/28/16 03:46 Primary care physician: PCP NO Discharging clinician: Radha Pan Anticipated date of discharge: 10/28/16 - Patient Status Disposition: Home, Self-Care Condition: Good Functional capacity at discharge: independent ambulation Overall status at discharge: patient is progressing back to baseline - Discharge Instructions Instructions: Atrial Fibrillation (DC), Urinary Tract Infection in Women (DC) Follow Up With: Ree Delatorre [employer]ALLP[employer]ER [employer]INTER [Advanced Practice Nurse] - 11/14/16 1:00 pm (Please take your new patient packet filled out with you to your appointment. It will be mailed to you. Also take with you your picture id, your insurance care, all medications in the bottles. Take your discharge instructions with you. show up 30 minutes early. If you have to cancel please do so 24 hours in advance at .) NO,PCP [Primary Care Provider] - - Diet and Activity Activity: resume usual activities as tolerated Diet: regular diet Hospital course: Ms. Gill is a 41 year old female with no significant past medical history was admitted with right-sided flank and abdominal pain. Emergency room workup revealed that patient was in atrial fibrillation with rapid ventricular response and she responded to 2 doses of IV Cardizem and a dose of IV metoprolol. She was noted to be on thyroid hormone/T3 supplements for weight loss. She was monitored on telemetry and she eventually converted to sinus rhythm, rate controlled. Urinalysis was suggestive of UTI and patient reported frequent urinary infections. She has been started on IV Rocephin. CT abdomen/pelvis showed no evidence of pyelonephritis but a small stone in the urinary bladder, which could explain her symptoms. Patient also reports severe dysuria and burning micturition and has been started on Pyridium. Patient is now medically stable for discharge and she has been strongly recommended to stop weight loss supplements without medical advice and she verbalized understanding. She is being discharged on oral antibiotics and metoprolol. - Time Spent with Patient Total time spent providing and/or coordinating discharge services: Greater than 30 minutes (45 min) - Constitutional Vitals: Temp Pulse Resp BP Pulse Ox 98.2 F 64 18 122/68 98 10/28/16 11:33 10/28/16 12:00 10/28/16 11:33 10/28/16 11:33 10/28/16 11:33 General appearance: Present: A&O X 3, answers questions appropriately - Respiratory Respiratory exam: Present: CTAB. Absent: accessory muscle use, rales, rhonchi, wheezes - Cardiovascular Cardiovascular exam: Present: RRR, +S1, +S2. Absent: diastolic murmur, gallop, rubs, systolic murmur
--- NOTE | 2016-10-28 17:22 | Electrocardiograph Report ---
[address] [address] Test Date: 2016-10-28 Pat Name: Arianna Gill Department: 103 Room: 2N01 Gender: F [employer] Officer: BLAKE : 1975 Requested By: Jesus Ernst Order Number: [id number] Reading MD: Daisy Carmichael Measurements Intervals [place] Rate: 144 P: DE: 0 QRS: 36 QRSD: 84 T: 31 QT: 269 QTc: 352 Interpretive Statements ATRIAL FIBRILLATION WITH RAPID VENTRICULAR RESPONSE LOW QRS VOLTAGE IN PRECORDIAL LEADS POSSIBLE RIGHT VENTRICULAR CONDUCTION DELAY MODERATE ST DEPRESSION Electronically Signed On 10-28-2016 17:20:40 EDT by Daisy Carmichael
== END 2016-10-28 15:20 | disposition home or self-care (01) ==
LOC: EMEROO 21:18 → 2NNU 21:18
PROVIDERS: ADMIT Internal Medicine; ATTEND Internal Medicine

== ENCOUNTER 2019-03-19 21:10 | Observation (INO) ==
[2019-03-20] MEDS ORDERED: Naloxone 0.4 MG/ML INJ IVP PRN (00:30)
--- NOTE | 2019-03-20 04:35 | Internal Med History&Physical ---
Date of Encounter: 03/20/19 Time of Encounter: 02:00 Internal Medicine - H&P: HPI Chief complaint: A. fib with RVR History of present illness: Ms. Gill is a 43 year old female with a past medical history of hypertension and menorrhagia who initially presented to [facility] due to dyspnea on exertion. Was found to be in atrial fibrillation with rapid ventricular re sponse with a heart rate of 151. Patient was given a loading dose of Cardizem and started on a drip. Patient converted to sinus rhythm approximately 2 hours later prior to transfer here for further evaluation. Patient reports prior history of A. fib several years ago at which time was attributed to phentermine use for weight loss which has since been discontinued. Patient denies any palpitations or chest pain with today's event. She denies use of energy drinks, caffeine or cold preparations or other stimulants. Laboratory workup at [facility] was notable for hemoglobin of 7.8. Last hemoglobin was 12 in January. Patient reports that on February 22 she underwent an endometrial biopsy due to heavy vaginal bleeding and was started on megestrol last . No further reports of bleeding at this time. She has a no lower extremity complaints and has no history of DVT or PE in the past. Due to a mildly elevated d-dimer of 553, CTA was performed to rule out PE prior to transfer which was negative and only notable for a 1.2 cm groundglass nodule within the right anterior upper lobe. Patient denies any smoking history. On arrival patient was in sinus rhythm and reports to feeling much better. Denies any recent illness, cough, chest pain, nausea, vomiting, diarrhea. She states there is a family history of heart disease. Patient was also given a therapeutic dose of Lovenox and transferred for further evaluation. Past Med Surg Social Fam HX - Past Medical History Medical history: hypertension Psychiatric history: no psych history - Past Surgical History Surgical History: other (Tubal ligation.) Additional surgical history: TUBAL LIGATION - Social History Smoking Status: Never smoker Smokeless Tobacco Status: No Alcohol use: none Drug use: none - Family History Mother Living Status: Age at : 47 Cause of : breast cancer Hx Family Cardiac Disorders: No Hx Family Cancer: Yes (breast cancer) Internal Medicine - H&P: Meds Megestrol Acetate [Megace] 40 mg PO DAILY 03/19/19 [History] Allergy/AdvReac Type Severity Reaction Status Date / Time No Known Allergies Allergy Verified 03/20/19 10:39 All Systems PM: A 10-system review of systems was performed and is negative for pertinent findings except as documented above in the HPI. - Constitutional Constitutional: no chills, no fever(s), no night sweats - EENT Eyes: no change in vision, no discharge, no pain, no photophobia Ears: no ear discharge, no ear pain, no tinnitus Nose, mouth and throat: no dysphagia, no nasal discharge, no neck pain, no sore throat - Cardiovascular Cardiovascular ROS IM: no chest pain, no diaphoresis, no dyspnea, no lightheadedness, no palpitations, no syncope - Respiratory Respiratory: no cough, no dyspnea, no wheezing, no excessive phlegm production - Gastrointestinal Gastrointestinal: no abdominal pain, no diarrhea, no hematemesis, no hematochezia, no melena, no nausea, no vomiting - Genitourinary Genitourinary: no change in urinary stream, no dysuria, no flank pain, no hematuria - Musculoskeletal Musculoskeletal ROS IM: no numbness, no tingling - Integumentary Integumentary IM: no rash, no unusual bruising - Neurological Neurological ROS: no confusion, no convulsions, no focal weakness, no numbness, no tingling, no tremor(s) - Hematologic/Lymphatic Hematologic/Lymphatic: no easy bruising - Constitutional Vitals: Temp Pulse Resp BP Pulse Ox 98.5 F 116 14 123/74 98 03/20/19 04:07 03/20/19 04:07 03/20/19 04:07 03/20/19 04:07 03/20/19 04:07 Exam: General: Alert and oriented 3 lying in bed in no acute distress Skin:Normal color, no rash, no lesions. HEENT:EOM, pupils equal, round and reactive. Cardiovascular:Normal S1 & S2, no rubs, murmurs or gallops. No JVD. Pulse regular. Lungs:Normal breath sounds, no wheezes or crackles. Abdomen:Soft, non-tender, no rigidity. Extremities:No deformity, no edema or tenderness, no joint swelling or clubbing. Neurological:Normal cognition and motor skills. Pulses:Carotid and radial pulses normal +2. Rest of the physical exam is non contributory Internal Med - H&P Results - Labs CBC & Chem 7: 03/20/19 15:29 03/20/19 04:40 - Assessment and Plan (1) Atrial fibrillation with rapid ventricular response Current Visit: Yes Status: Acute Assessment and plan: Patient presented with dyspnea on exertion. Found to have atrial fibrillation with RVR with a heart rate of 151 based on initial EKG obtained at [facility]. No ischemic changes noted nor was any chest pain reported. Reports prior history of A. fib several years ago associated with with phentermine use which he no longer takes. Patient is anemic likely secondary to menorrhagia currently on megestrol with no reports of further bleeding. Etiology of patient's A. fib unclear. No evidence of PE. Unclear if anemia is a driving factor. Patient denies any significant use of stimulants. -Telemetry -Chads Vasc score of 2. Patient received therapeutic Lovenox prior to transfer at 90 mg at approximately 7pm last night. Patient currently in sinus rhythm. Consider discussion with cardiology prior to resuming anticoagulation given patient's anemia. -We will obtain echocardiogram in the morning -Consult to cardiology (2) Dyspnea Current Visit: Yes Status: Acute Assessment and plan: Reported dyspnea upon exertion likely secondary to atrial fibrillation. Patient reporting resolution of symptoms corresponding to resolution of A. fib. A component of this may also be her anemia. We will continue to monitor and provide supportive care as needed. Qualifiers: Dyspnea type: dyspnea on exertion Qualified Code(s): R06.09 - Other forms of dyspnea (3) Acute anemia Current Visit: No Status: Acute Assessment and plan: Patient found to have a hemoglobin of 7.8 in the setting of reported menorrhagia status post endometrial biopsy approximately one week ago and currently on megestrol for control of vaginal bleeding. No reports of recent vaginal bleed. Patient did receive therapeutic dose of Lovenox for her A. fib prior to transfer. -We will repeat hemoglobin -We will obtain iron studies. -Trend H&H -Consider transfusion if hemoglobin continues to drop (4) H/O metrorrhagia Current Visit: Yes Status: Acute Assessment and plan: History of heavy vaginal bleeding status post recent endometrial biopsy and currently on megestrol for management. -Continue megestrol for now - Time Spent With Patient Total time spent is greater than 50% in coordination of care (as documented) at patient's floor/unit and/or counseling patient:
[2019-03-20 05:05] LABS: White Blood Count 6.6 K/mcL (4.3-11.1)
[2019-03-20 05:06] LABS: Basophils % 0.5 %; Eosinophils # 0.2 K/mcL (0.0-0.6); Eosinophils % 3.6 %; Hematocrit 24.6 % (35.3-44.9); Hemoglobin 7.6 g/dL (11.5-15.4); Immature Granulocytes % 0.3 % (0-4); Lymphocytes # 1.5 K/mcL (0.6-4.6); Lymphocytes % 22.1 %; Mean Corpuscular HGB Conc 30.9 g/dL (31.6-35.5); Mean Corpuscular Hemoglobin 25.7 pg (28.0-33.3); Mean Corpuscular Volume 83.1 fL (83.0-100.0); Mean Platelet Volume 9.5 fL (9.4-12.4); Monocytes # 0.5 K/mcL (0.0-1.3); Monocytes % 7.3 %; Neutrophils # 4.4 K/mcL (1.6-8.9); Platelet Count 308 K/mcL (140-400); Red Blood Count 2.96 M/mcL (3.82-4.97); Red Cell Distribution Width 15.3 % (11.5-14.5); Segmented Neutrophils % 66.2 %
[2019-03-20 05:25] LABS: % Iron Saturation 3 % (15-50); Alanine Aminotransferase 15 Units/L (7-52); Albumin 3.7 g/dL (3.5-5.7); Albumin/Globulin Ratio 1.2 (1.1-2.2); Alkaline Phosphatase 62 Units/L (34-104); Aspartate Amino Transferase 13 Units/L (13-39); BUN/Creatinine Ratio 13 (6-26); Bilirubin,Total 0.2 mg/dL (0.3-1.0); Blood Urea Nitrogen 9 mg/dL (6-20); Calcium 8.8 mg/dL (8.6-10.3); Carbon Dioxide 23 mEq/L (23-29); Chloride 105 mEq/L (98-107); Glucose 128 mg/dL (70-105); Iron 14 mcg/dL (50-170); Osmolality,Calculated 284 (280-300); Potassium 3.7 mEq/L (3.5-5.1); Sodium 137 mEq/L (136-145); Total Protein 6.7 g/dL (6.4-8.9); Transferrin 356 mg/dL (203-362); Troponin I < 0.03 ng/mL (< 0.04); eGFR For African Americans > 60 (> 60); eGFR For Non-African Americans > 60 (> 60)
[2019-03-20] MEDS ORDERED: *HR* Heparin 5,000 UNIT/ML VIAL SQ SCH (06:00)
[2019-03-20 06:36] LABS: Ferritin 8 ng/mL (10-120)
[2019-03-20] MEDS ORDERED: *HR* Metoprolol 5 MG/5 ML VIAL IVP ONE ×3 (07:19→15:44)
[2019-03-20 07:48] LABS: Estimated Average Glucose 143 mg/dl
[2019-03-20 08:21] LABS: Hematocrit 28.2 % (35.3-44.9); Hemoglobin 8.8 g/dL (11.5-15.4)
--- NOTE | 2019-03-20 09:39 | Cardiology Consult Note ---
Date of Encounter: 03/20/19 Time of Encounter: 08:30 Assessment and Plan (1) Atrial fibrillation with RVR Current Visit: Yes Status: Acute Patient presented with afib with RVR; converted to NSR while on cardizem gtt. PAF overnight, NSR this AM. Will start Cardizem CD 120 mg daily. TSH normal. No significant electrolyte abnormality. Ddimer elevated, CTA negative for PE. Low risk nodule noted, recommend outpatient follow-up with PCP. TTE pending. Recommend consideration of stress testing in the outpatient setting. [id number]=9-6. Reports hx of HTN, however not on medications. No prior hx of DMII however A1C borderline. In the setting of heavy menses, with acute anemia (HgB 7.6 upon admission, was 12.3 02/03); recommend asa only for CVA prevention. May need to consider senior care full AC in the future with recurrence of Afib and if H/H will tolerate. Discussion w patient/family: The assessment and plan as outlined above was discussed with the patient and/or family members who expressed understanding and agreement. All questions were answered. Thank you for involving us in the care of your patient. Please call with any questions. The patient will be discussed and reviewed with Dr. Avila; changes to be made accordingly. History of Present Illness Consult date: 03/20/19 Requesting physician: Jeanne Duque Consult reason: Afib Chief complaint: Shortness of breath History of present illness: Ms. Gill is a 43 year old female with PMHx significant of HTN (not on medications) and recent heavy menses who presented to [facility] after she developed sudden onset of dyspnea. Report symptoms started yesterday after waking up from a nap, she noticed a headache and started to walk into the kitchen when she developed shortness of breath and difficulty breathing. She then went to the ED and was found to in be atrial fibrillation with RVR, she was started on a cardizem gtt and was transferred to [facility] for further evaluation. She reports isolated episode of afib 3-4 years ago, however states was related to weight loss pill which contained phentermine. She reports heavy menses since February 22, was started on Megace per CLINICAL IMPLEMENTATION SPECIALIST and had endometrial biopsy this past Monday-results pending. D-dimer was elevated at 553; CTA completed at [facility] and was negative for PE. Past Med Surg Social Fam HX - Past Medical History Attestation: Yes The following information was validated with the patient. Source: patient Medical history: hypertension Psychiatric history: no psych history - Past Surgical History Surgical History: other (Tubal ligation.) Additional surgical history: TUBAL LIGATION - Social History Smoking Status: Never smoker Smokeless Tobacco Status: No Alcohol use: none Drug use: none - Family History Mother Living Status: Age at : 47 Cause of : breast cancer Hx Family Cardiac Disorders: No Hx Family Cancer: Yes (breast cancer) Father History Unknown: Yes Medications and Allergies Megestrol Acetate [Megace] 40 mg PO DAILY 03/19/19 [History] Allergy/AdvReac Type Severity Reaction Status Date / Time No Known Allergies Allergy Verified 02/03/19 00:13 All Systems Review: The remainder of the systems were reviewed and are negative - Cardiovascular Cardiovascular: as per HPI Physical Examination Vital Signs, Last 4 Hours Temp Pulse Resp BP Pulse Ox 03/20/19 07:38 99.3 F 129 16 136/88 98 General: Conversant, No Apparent Distress HEENT: Atraumatic, Normocephaly, Mucus Membranes Moist Neck: No JVD, Normal carotid pulses Cardiac: Reg Rate and Rhythm, Normal S1 and S2, No Murmur Lungs: Normal Breath Sounds, No Wheeze, Rales, Rhonchi Neuro: Alert and responsive, No focal deficits noted Abdomen: Soft, Non-Tender Skin: No rashes noted on visualized skin Musculoskeletal: No Chest Wall Tenderness Extremities: No Clubbing, No Cyanosis, No Edema, Normal Pulses Results 03/20/19 08:02 03/20/19 04:40 Lab Results 03/20/19 03/20/19 03/20/19 04:40 04:40 04:40 WBC 6.6 Hgb 7.6 L Hct 24.6 L Plt Count 308 Sodium 137 Potassium 3.7 Chloride 105 Carbon Dioxide 23 BUN 9 Creatinine 0.69 Glucose 128 H Calcium 8.8 Total Bilirubin 0.2 L AST 13 ALT 15 Alkaline Phosphatase 62 Troponin I < 0.03 B-Natriuretic Peptide 145 H 03/20/19 08:02 WBC Hgb 8.8 L Hct 28.2 L Plt Count Sodium Potassium Chloride Carbon Dioxide BUN Creatinine Glucose Calcium Total Bilirubin AST ALT Alkaline Phosphatase Troponin I B-Natriuretic Peptide - Imaging and Cardiology Echo: pending Other Results: 12 hour tele: avg RS=[id number]. PAF noted overnight, now SR - EKG Interpretation EKG results cardiology: personally reviewed Consult Discharge Plan - Plan Referrals: NONE,PCP [Primary Care Provider] -
[2019-03-20] MEDS: Aspirin Enteric Coated 81 MG Tablet PO SCH (10:42)
[2019-03-20] MEDS: Diltiazem CD (24hr) 120 MG CAPSULE PO SCH (10:42)
--- NOTE | 2019-03-20 15:18 | Electrocardiograph Report ---
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
[2019-03-20 15:46] LABS: Hematocrit 27.1 % (35.3-44.9); Hemoglobin 8.6 g/dL (11.5-15.4)
--- NOTE | 2019-03-20 16:39 | Internal Med Progress Note ---
Hospitalist Progress Note - Encounter Date of Encounter: 03/20/19 Time of Encounter: 10:00 - Subjective Interval History: Ms Gill does report vaginal bleeding for which she is established with the blood tester and has an appointment for March 27. She stated that she recently had a endometrial biopsy last week Monday. She reports spotting this morning. 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 She denies tobacco use. GEN: Denies fever, chills or malaise HEENT: Denies headache blurriness, or dysphagia RESP: Denies SOB or cough CV: Denies chest pain or palpitations GI: Denies Nausea, vomiting, diarrhea or constipation Reviewed current in hospital medications with modifications see orders Reviewed Routine labs - Exam Vitals: Temp Pulse Resp BP Pulse Ox 97.9 F 121 20 135/76 98 03/20/19 15:53 03/20/19 15:53 03/20/19 15:53 03/20/19 15:53 03/20/19 15:53 Exam: GEN: NAD, A&O x 3, Pleasant and conversant, daughter at the bedside SKIN: [place] warm acyanotic not jaundice HEART: RRR with occasional ectopic beat, no murmurs LUNGS: CTA no wheeze or crackles, overall non labored ABDOMEN; Soft, non tender or distended, BS x 4 normactive EXT: No LE edema, Pedal pulses 1+, radial pulses 2+ PSYCH: Mood and affect is appropriate - Assessment and Plan (1) Acute blood loss anemia Current Visit: Yes Status: Acute Assessment and Plan: Hemoglobin this morning was 7.6, trended 8.8 and 8.6 in the setting of vaginal bleed we will monitor. She is reluctant to blood transfusion however will accept if indicated. Does have iron deficiency which reveals the chronicity. We will check B12 and folate also (2) Iron deficiency anemia Current Visit: Yes Status: Acute Assessment and Plan: Suspect chronic blood loss from her vaginal bleed with supplements with iron sucrose 2 doses (3) Atrial fibrillation with rapid ventricular response Current Visit: Yes Status: Acute Assessment and Plan: Patient initially converted back to normal sinus rate and horn this afternoon she is back in atrial fibrillation with RVR while on diltiazem orally given her active vaginal bleed anticoagulation is contraindicated, will continue to strive for rate control (4) Dyspnea Current Visit: Yes Status: Acute Assessment and Plan: Reported dyspnea upon exertion likely secondary to atrial fibrillation. Patient reporting resolution of symptoms corresponding to resolution of A. fib. A component of this may also be her anemia. We will continue to monitor and provide supportive care as needed. She suddenly 98% on room air hemoglobin does reveal iron deficiency anemia echo is pending, of note CTA obtained on 2018 as follows: IMPRESSION: No findings to suggest large central pulmonary embolism as discussed above. 1.2 cm ground-glass nodule is seen within the anterior right upper lobe. Infectious/inflammatory nodule is most common though bronchoalveolar cell carcinoma can have a similar appearance. A 5 mm right lower lobe nodule is also seen. Follow-up recommendations are as below. (5) H/O metrorrhagia Current Visit: Yes Status: Acute Assessment and Plan: History of heavy vaginal bleeding status post recent endometrial biopsy and currently on megestrol for management. -Continue megestrol for now she has an outpatient appointment with blood tester Mar 27, only reports spotting (6) Pulmonary nodules Current Visit: Yes Status: Acute Assessment and Plan: Incidental finding on CT imaging she does report environmental/toxic exposure at work she denies any history of tobacco use. She will likely need a repeat CT of the chest in 6 months CTA 2018 IMPRESSION: No findings to suggest large central pulmonary embolism as discussed above. 1.2 cm ground-glass nodule is seen within the anterior right upper lobe. Infectious/inflammatory nodule is most common though bronchoalveolar cell carcinoma can have a similar appearance. A 5 mm right lower lobe nodule is also seen. Follow-up recommendations are as below. DVT Prophylaxis: SCDs due to vaginal bleeding - Time Spent with Patient Total time spent is greater than 50% in coordination of care (as documented) at patient's floor/unit and/or counseling patient: Internal Medicine: Result - Labs CBC & Chem 7: 03/20/19 15:29 03/20/19 04:40 Labs: Short CBC 03/20/19 03/20/19 03/20/19 Range/Units 04:40 08:02 15:29 WBC 6.6 (4.3-11.1) K/mcL Hgb 7.6 L 8.8 L 8.6 L (11.5-15.4) g/dL Hct 24.6 L 28.2 L 27.1 L (35.3-44.9) % Plt Count 308 (140-400) K/mcL Neutrophils # 4.4 (1.6-8.9) K/mcL BMP 03/20/19 04:40 Sodium 137 Potassium 3.7 Chloride 105 Carbon Dioxide 23 BUN 9 Creatinine 0.69 Glucose 128 H Calcium 8.8 Cardiac Enzymes 03/20/19 Range/Units 04:40 Troponin I < 0.03 (< 0.04) ng/mL Liver Function 03/20/19 Range/Units 04:40 Total Bilirubin 0.2 L (0.3-1.0) mg/dL AST 13 (13-39) Units/L ALT 15 (7-52) Units/L Alkaline Phosphatase 62 (34-104) Units/L Albumin 3.7 (3.5-5.7) g/dL Consult Discharge Plan - Plan Referrals: NONE,PCP [Primary Care Provider] - (2) Iron deficiency anemia Qualifiers: Iron deficiency anemia type: chronic blood loss Qualified Code(s): D50.0 - Iron deficiency anemia secondary to blood loss (chronic)
[2019-03-20] MEDS ORDERED: Iron Sucrose Complex 250 MG in 0.9 % Sodium Chloride 250 ML IVPB SCH (17:00)
[2019-03-20] MEDS ORDERED: *HR* Metoprolol 5 MG/5 ML VIAL IVP PRN (18:07)
[2019-03-20 20:07] LABS: Hematocrit 26.2 % (35.3-44.9); Hemoglobin 8.2 g/dL (11.5-15.4)
[2019-03-21 04:55] LABS: Basophils % 0.4 %; Eosinophils # 0.2 K/mcL (0.0-0.6); Hematocrit 27.3 % (35.3-44.9); Hemoglobin 8.3 g/dL (11.5-15.4); Immature Granulocytes % 0.6 % (0-4); Lymphocytes # 1.5 K/mcL (0.6-4.6); Lymphocytes % 18.6 %; Mean Corpuscular HGB Conc 30.4 g/dL (31.6-35.5); Mean Corpuscular Hemoglobin 25.2 pg (28.0-33.3); Mean Corpuscular Volume 82.7 fL (83.0-100.0); Mean Platelet Volume 9.4 fL (9.4-12.4); Monocytes # 0.7 K/mcL (0.0-1.3); Monocytes % 8.4 %; Neutrophils # 5.6 K/mcL (1.6-8.9); Platelet Count 344 K/mcL (140-400); Red Cell Distribution Width 15.1 % (11.5-14.5)
[2019-03-21 05:11] LABS: BUN/Creatinine Ratio 16 (6-26); Blood Urea Nitrogen 11 mg/dL (6-20); Calcium 8.6 mg/dL (8.6-10.3); Carbon Dioxide 22 mEq/L (23-29); Chloride 107 mEq/L (98-107); Glucose 120 mg/dL (70-105); Magnesium 2.3 mg/dL (1.6-2.6); Osmolality,Calculated 285 (280-300); Potassium 3.9 mEq/L (3.5-5.1); Sodium 137 mEq/L (136-145); eGFR For African Americans > 60 (> 60); eGFR For Non-African Americans > 60 (> 60)
[2019-03-21 05:36] LABS: Folate 15.6 ng/mL (3.0-16.0)
[2019-03-21] MEDS: Aspirin Enteric Coated 81 MG Tablet PO SCH ×2 (08:57→08:59)
[2019-03-21] MEDS: Cyanocobalamin (B-12) 1,000 MCG TABLET PO SCH ×2 (08:57→08:59)
[2019-03-21] MEDS: Diltiazem CD (24hr) 120 MG CAPSULE PO SCH (10:06)
[2019-03-21 11:18] VITALS: BP 124/74
[2019-03-21] MEDS ORDERED: Iron Sucrose Complex 250 MG in 0.9 % Sodium Chloride 250 ML IVPB ONE (11:30)
--- NOTE | 2019-03-21 11:55 | Event Note ---
Date of Encounter: 03/21/19 Time of Encounter: 11:54 - Cardiology Event Note TTE resulted--Technically sub-optimal due to poor echocardiographic windows. Atrial fibrillation/flutter with RVR. LVEF 60-65%. Normal LV chamber size, wall thickness and function. Indeterminate diastolic function. Normal right ventr icular structure and function. No evidence of pulmonary hypertension. No significant valvular dysfunction. PAF noted overnight on telemetry, now back in SR. Continue PO Cardizem CD 120mg daily. [id number]=1-2. Reports hx of HTN, however not on medications. No prior hx of DMII however A1C borderline. In the setting of heavy menses, with acute anemia (HgB 7.6 upon admission, was 12.3 02/03); recommend asa only for CVA prevention. [facility] need [facility] in the future with recurrence of Afib and if H/H will tolerate. Cardiology signing off. Reconsult PRN. Will coordinate outpt follow-up in 2-3 weeks.
--- NOTE | 2019-03-21 12:41 | Discharge Summary ---
- NOTES TO OUTPATIENT PROVIDER Notes to Outpatient Provider: Post hospital discharge for acute blood loss anemia secondary to vaginal bleed, A. fib with rapid ventricle response patient will need to follow up with cardiology to rediscuss anticoagulation once her vaginal bleed as been addressed by PARADICHLOROBENZENE MACHINE OPERATOR. Patient would also need a repeat CT of the chest due to findings of right upper lobe and right lower lobe pulmonary nodules Orders not resulted at time of discharge: Pending orders 03/20/19 23:09 Culture,Urine [RM] Stat Date of Encounter: 03/21/19 Time of Encounter: 12:39 - Discharge Diagnosis (1) Atrial fibrillation with rapid ventricular response Priority: Primary Status: Acute Assessment and Plan: Patient appears to have paroxysmal A. fib however not able to anticoagulate due to vaginal bleed which is being addressed by her PARADICHLOROBENZENE MACHINE OPERATOR. Patient will need to follow up with cardiology in a few weeks to discuss need for anticoagulation once vaginal bleed has been addressed by PARADICHLOROBENZENE MACHINE OPERATOR. We will discharge on rate control medication with diltiazem (2) Acute blood loss anemia Priority: Primary Status: Acute Assessment and Plan: Hemoglobin this morning was 7.6, trended 8.8 and 8.6 in the setting of vaginal bleed we will monitor hemoglobin at discharge is 8.3 she denies any vaginal spotting today as aforementioned she is followed up at [facility]ENZ[facility] MACHINE OPERATOR on March 27. She is reluctant to blood transfusion however will accept if indicated. Does have iron deficiency which reveals the chronicity. check B12 low vitamin 12 oral supplement and folate within normal limits (3) Pulmonary nodules Priority: Secondary Status: Acute Assessment and Plan: Incidental finding on CT imaging she does report environmental/toxic exposure at work she denies any history of tobacco use. She will likely need a repeat CT of the chest in 6 months CTA 2018 IMPRESSION: No findings to suggest large central pulmonary embolism as discussed above. 1.2 cm ground-glass nodule is seen within the anterior right upper lobe. Infectious/inflammatory nodule is most common though bronchoalveolar cell carcinoma can have a similar appearance. A 5 mm right lower lobe nodule is also seen. Follow-up recommendations are as below. (4) Dyspnea Priority: Secondary Status: Acute Assessment and Plan: Reported dyspnea upon exertion likely secondary to atrial fibrillation. Patient reporting resolution of symptoms corresponding to resolution of A. fib. A component of this may also be her anemia. Her echocardiogram was unremarkable. CTA of the chest IMPRESSION: No findings to suggest large central pulmonary embolism as discussed above. 1.2 cm ground-glass nodule is seen within the anterior right upper lobe. Infectious/inflammatory nodule is most common though bronchoalveolar cell carcinoma can have a similar appearance. A 5 mm right lower lobe nodule is also seen. Follow-up recommendations are as below. Qualifiers: Dyspnea type: dyspnea on exertion Qualified Code(s): R06.09 - Other forms of dyspnea (5) H/O metrorrhagia Priority: Primary Status: Acute Assessment and Plan: History of heavy vaginal bleeding status post recent endometrial biopsy and currently on megestrol for management. -Continue megestrol for now she has an outpatient appointment with printing agent Mar 27, (6) Iron deficiency anemia Priority: Secondary Status: Acute Assessment and Plan: Suspect chronic blood loss from her vaginal bleed with supplements with iron sucrose 2 doses Qualifiers: Iron deficiency anemia type: chronic blood loss Qualified Code(s): D50.0 - Iron deficiency anemia secondary to blood loss (chronic) Hospital course: Ms. Gill is a 43 year old female was hospitalized for acute blood loss anemia fibrillation with rapid ventricular response. Workup revealed iron deficiency as well as B12 deficiency. Patient was noted on CT imaging to have right upper and lower lobes pulmonary nodules she will need outpatient CT imaging of the chest in 6 months. For her vaginal bleeding she is established with PARADICHLOROBENZENE MACHINE OPERATOR she has an appointment for March 27 Discharge discussed with: patient, nurse - Time Spent with Patient Total time spent providing and/or coordinating discharge services:35 mins Specific discharge activities: Please make sure you keep all your outpatient follow-up appointments you need to follow up with the robotics technician in the upcoming weeks after you have seen the PARADICHLOROBENZENE MACHINE OPERATOR to discuss anticoagulation for atrial fibrillation - Discharge Medications Prescriptions: New Aspirin Enteric Coated [Aspirin EC] 81 mg PO DAILY #30 tablet.dr [place] CD (24hr) [Cardizem CD] 120 mg PO DAILY #30 cap.er.24h Cyanocobalamin (B-12) [Vitamin B12] 1,000 mcg PO DAILY #30 tablet Continued Megestrol Acetate [Megace] 40 mg PO DAILY Home Medications: Megestrol Acetate [Megace] 40 mg PO DAILY 03/19/19 [History] Aspirin Enteric Coated [Aspirin EC] 81 mg PO DAILY #30 tablet. 03/21/19 [Rx] Cyanocobalamin (B-12) [Vitamin B12] 1,000 mcg PO DAILY #30 tablet 03/21/19 [Rx] Diltiazem CD (24hr) [Cardizem CD] 120 mg PO DAILY #30 cap.er.24h 03/21/19 [Rx] Allergies/Adverse Reactions: Allergy/AdvReac Type Severity Reaction Status Date / Time No Known Allergies Allergy Verified 03/20/19 10:39 Date of admission: 03/19/19 22:32 Primary care physician: PCP NONE Consults: 03/20/19 00:42 Consult to Cardiology [CONS] Routine Comment: Consulting Provider: Cardiology Angy Reason for Consult: New onset A. Fib Call Completed: No 03/20/19 00:46 Consult to [place] [CONS] Routine Reason for SW Consult: pt is self pay. may need help with scripts Discharging clinician: Yany Mcconnell Anticipated date of discharge: 03/21/19 - Constitutional Vitals: Temp Pulse Resp BP Pulse Ox 98.7 F 85 18 124/74 97 03/21/19 11:15 03/21/19 11:15 03/21/19 11:15 03/21/19 11:15 03/21/19 11:15 Exam: GEN: NAD, A&O x 3, Pleasant and conversant, daughter, and at the bedside SKIN: [place] warm acyanotic not jaundice HEART: RRR with occasional ectopic beat, no murmurs LUNGS: CTA no wheeze or crackles, overall non labored ABDOMEN; Soft, non tender or distended, BS x 4 normactive EXT: No LE edema, Pedal pulses 1+, radial pulses 2+ PSYCH: Mood and affect is appropriate - Patient Status Disposition: Home, Self-Care Condition: Good Functional capacity at discharge: independent ambulation Overall status at discharge: patient is back to baseline - Discharge Instructions Follow Up With: NONE,PCP [Primary Care Provider] - - Diet and Activity Activity: resume usual activities as tolerated Diet: low fat, low cholesterol, low salt diet
--- NOTE | 2019-03-21 17:50 | Electrocardiograph Report ---
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
--- NOTE | 2019-03-25 11:43 | Electrocardiograph Report ---
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
== END 2019-03-21 14:30 | disposition home or self-care (01) ==
LOC: 2ANU → SUATTDRO 22:32
PROVIDERS: ADMIT Internal Medicine; ATTEND Pharmacist